=== PATIENT | female | born 1970 | race Two or more races ===

== ENCOUNTER 2023-07-01 10:37 | Emergency (ER) | payer BC ==
[~2023-07-01] VITALS: Ht 165.1 cm; Wt 77.1 kg
[2023-07-01] MEDS ORDERED: JANUVIA25 MG (10:43)
[2023-07-01 15:35] LABS: HEMATOCRIT 33.5 % (36.0-45.00); HEMOGLOBIN 11.2 g/dL (12.0-15.00); MEAN CELL VOLUME 75.5 fL (80.00-100.00); MEAN CORPUSCULAR HEMOGLOBIN 25.2 pg (27.00-32.0); MEAN CORPUSCULAR HGB CONC 33.3 g/dl (32.0-36.0); PLATELET COUNT 398 K/uL (150-450); RED BLOOD COUNT 4.44 M/uL (4.00-6.00); RED CELL DISTRIBUTION WIDTH 13.7 % (11.5-14.5)
[2023-07-01 15:53] LABS: CALCIUM 9.2 mg/dL (8.5-10.1); CREATININE SERUM 0.7 mg/dL (0.55-1.02); GFR 87.2; POTASSIUM 3.82 mEq/L (3.5-5.1)
[2023-07-01 17:22] LABS: PH,URINE 7.5 (5.0-8.0); URINE APPEARANCE Clear; URINE BILIRRUBIN Negative (NEGATIVE); URINE BLOOD Negative; URINE COLOR Yellow; URINE LEUKOCYTE Moderate; URINE NITRATE Negative; URINE PROTEIN Negative (NEGATIVE)
[2023-07-01 17:25] LABS: URINE BACTERIA 37.7 uL (0.0-1933); URINE EPITHELIAL CELLS 4.1 uL (0.0-38.8); URINE RBC 2.8 uL (0.0-20.8); URINE WBC 83.7 uL (0.0-23.2)
[2023-07-01 17:34] LABS: URINE GLUCOSE 100 MG/DL (NEGATIVE)
[2023-07-02] MEDS ORDERED: VISTARIL25 MG PO ×2 (02:09)
== END 2023-07-02 02:05 | disposition left against medical advice (07) ==
LOC: ER 10:37
PROVIDERS: General Practice
DX: S19.89XA Other specified injuries of other specified part of neck, initial encounter (principal); Y08.89XA Assault by other specified means, initial encounter; Y93.89 Activity, other specified; Y92.89 Other specified places as the place of occurrence of the external cause; E03.9 Hypothyroidism, unspecified; E11.9 Type 2 diabetes mellitus without complications; Z79.84 Long term (current) use of oral hypoglycemic drugs